=== PATIENT | female | born 1985 | race Caucasian/White ===

== ENCOUNTER → 2018-01-09 | Outpatient (CLI) | payer OTHER ==
--- NOTE | 2018-01-09 15:24 | US ---
EXAMINATION TYPE: US kidneys/renal and bladder DATE OF EXAM: 01/09/2018 COMPARISON: CT CLINICAL HISTORY: R31.9 Hematuria. EXAM MEASUREMENTS: Right Kidney: 11.9 x 5.4 x 4.8 cm Left Kidney: 12.0 x 6.2 x 4.6 cm Morbidly obese patient, technically difficult and somewhat limited study. Right Kidney: No hydronephrosis or masses seen Left Kidney: No hydronephrosis or masses seen Bladder: not fully distended, not well visualized, patient felt like her bladder was full There is no evidence for hydronephrosis at this point in time. No nephrolithiasis is seen. No donna s are identified. IMPRESSION: 1. No hydronephrosis or nephrolithiasis. 2. Incomplete evaluation of the urinary bladder due to minimal distention despite patient's descripti on of a full bladder.
== END | disposition home or self-care (01) ==
LOC: RADUSWWP 14:51
PROVIDERS: ATTEND Family Medicine
DX: R31.9 Hematuria, unspecified (principal)
CPT/HCPCS: 76770

== ENCOUNTER → 2019-12-27 | Outpatient (CLI) | payer OTHER ==
--- NOTE | 2019-12-27 17:20 | CT ---
EXAMINATION TYPE: CT abdomen pelvis wo con DATE OF EXAM: 12/27/2019 COMPARISON: 01/21/2016 HISTORY: Bilat flank pain, worse on right. CT DLP: 1238 mGycm Automated exposure control for dose reduction was used. Images were obtained from the diaphragm to the floor the pelvis with no contrast. FINDINGS: Lung bases are clear. There is no pleural effusion. Heart size is normal. Liver spleen pancreas gallbladder appear normal. Bile ducts are not dilated. There is no adrenal mass . Kidneys have normal size and contour. There is no hydronephrosis. Ureters are not dilated. There is no retroperitoneal adenopathy. Appendix is posterior and appears normal. There is no evidence of ing uinal hernia. Bladder distends smoothly. Uterus appears normal. There is no evidence of a pelvic mass . There is no mesenteric edema. There is no ascites or free air. There is no bowel obstruction. Lumbar spine is intact. There is no compression fracture. Bony pelvis appears intact. IMPRESSION: Negative CT scan of the abdomen and pelvis. No renal stone or obstruction. Normal appendix. No advers e change compared to old exam.
== END | disposition home or self-care (01) ==
LOC: RADCTMAIN 16:45
PROVIDERS: ATTEND Family Medicine
DX: R10.9 Unspecified abdominal pain (principal)
CPT/HCPCS: 74176

== ENCOUNTER → 2023-02-08 | Outpatient (CLI) | payer OTHER ==
[2023-02-08 14:13] LABS: ALT 22 U/L (4-34); AST 26 U/L (14-36); African American GFR (CKD) 89 (>60 ml/min/1.73 sqM); Albumin 4.1 g/dL (3.5-5.0); Albumin/Globulin Ratio 1.1; Alkaline Phosphatase 86 U/L (38-126); Anion Gap 9 mmol/L; Blood Urea Nitrogen 18 mg/dL (7-17); C Reactive Protein 3.9 mg/dL (<1.0); Calcium 9.1 mg/dL (8.4-10.2); Carbon Dioxide 27 mmol/L (22-30); Chloride 101 mmol/L (98-107); Globulin 3.6 g/dL; Glucose 92 mg/dL (74-99); Non-African American GFR(CKD) 77 (>60 ml/min/1.73 sqM); Potassium 4.2 mmol/L (3.5-5.1); Sodium 137 mmol/L (137-145); Total Bilirubin 0.6 mg/dL (0.2-1.3); Total Protein 7.7 g/dL (6.3-8.2)
[2023-02-08 14:19] LABS: NT-Pro-B-Type Natriuretic Pept 23 pg/mL
--- NOTE | 2023-02-08 14:23 | CT ---
EXAMINATION TYPE: CT angio chest CT DLP: 1487 mGycm, Automated exposure control for dose reduction was used. DATE OF EXAM: 02/08/2023 2:18 PM COMPARISON: None CLINICAL INDICATION:Female, 38 years old with history of M54.6 PAIN IN THORACIC SPINE; TECHNIQUE/CONTRAST: And mid CTA scan of the thorax is performed with IV Contrast, patient injected with 100 mL of Isovue 370, 3D and MIP reconstructed images are created on an independent workstation and reviewed.. FINDINGS: Lungs/Pleura: No evidence of focal consolidation, pleural effusion or pneumothorax. Mild centrilobula r emphysema. Airway: Large airways are patent. Heart: Heart is within normal limits for size. Vasculature: No evidence for intramural hematoma on noncontrast. No evidence of intimal flap to sugge st dissection. No aneurysm identified. Scattered atherosclerotic disease. Mediastinum: No gross evidence of adenopathy. Musculoskeletal: Mild degenerative disc disease changes are present throughout the thoracolumbar spin e. Soft Tissues: Unremarkable. Lower neck: No significant findings. Upper Abdomen: No significant findings. IMPRESSION: 1. No evidence for aortic dissection, ulna embolus or aortic aneurysm. 2. No acute thoracic process. 3. Mild emphysema changes. 4. Mild degeneration changes throughout the spine.
[2023-02-08 14:52] LABS: Creatine Kinase MB 0.4 ng/mL (0.0-3.4); Troponin I <0.012 ng/mL (0.000-0.034)
[2023-02-08 23:12] LABS: HCT 43.7 % (37.2-46.3); HGB 14.1 d/dL (12.0-15.0); MCH 29.1 pg (27.0-32.0); MCHC 32.3 d/dL (32.0-37.0); MCV 90.3 FL (80.0-97.0); Mean Platelet Volume 9.6 FL (9.5-12.2); NRBC Per 100 WBC 0 X 10*3/uL (0.00-0.01); Platelet Count 379 X 10*3/uL (140-440); RBC 4.84 X 10*6/uL (4.10-5.20); RDW 12.4 % (11.5-14.5); WBC 12.17 X 10*3/uL (4.50-10.00)
[2023-02-09 00:34] LABS: Erythrocyte Sedimentation Rate 38 mm/Hr (0-20)
== END | disposition home or self-care (01) ==
LOC: RADCTMAIN 13:17
PROVIDERS: ATTEND Family Medicine
DX: M51.35 Other intervertebral disc degeneration, thoracolumbar region (principal); J43.2 Centrilobular emphysema; I51.7 Cardiomegaly; R22.33 Localized swelling, mass and lump, upper limb, bilateral
CPT/HCPCS: 85379; 83880; 80053; 85652; 82553; 84484; 85027; 86140; 71275; 36415; Q9967

== ENCOUNTER → 2024-04-17 | Outpatient (CLI) | payer OTHER ==
--- NOTE | 2024-04-18 09:14 | MM ---
Reason for Exam: Screening (asymptomatic). Baseline mammogram. Patient History: Menarche at age 8. First Full-Term at age 26. Maternal grandmother had breast cancer, age 60. Maternal grandmother tested for BRCA1 outcome was negative. Maternal grandmother tested for BRCA2 outcome was negative. Risk Values: Sarika 5 year model risk: 0.7%. NCI Lifetime model risk: 12.1%. Prior Study Comparison: Patient's first Mammogram. Tissue Density: There are scattered areas of fibroglandular density. Findings: Analyzed By CAD. There is no suspicious group of microcalcifications or new suspicious mass in either breast. Overall Assessment: Benign, BI-RAD 2 Management: Screening Mammogram of both breasts in 1 year. . Patient should continue monthly self-breast exams. A clinical breast exam by your physician is recommended on an annual basis. This exam should not preclude additional follow-up of suspicious palpable abnormalities. Note on Sarika scores and lifetime risk: 1. A Sarika score greater than 3% is considered moderate risk. If this is the case, consider specialist referral to assess eligibility for a risk reducing agent. 2. If overall lifetime risk for the development of breast cancer is 20% or higher, the patient may qualify for future screening with alternating mammogram and breast MRI. [facility], , 04/18/2024 9:11 AM. Electronically signed and approved by: Ramiro Garza M.D. [facility]
== END | disposition home or self-care (01) ==
LOC: RADMAMWWP 15:27
PROVIDERS: ATTEND Family Medicine
CPT/HCPCS: 77063; 77067